=== PATIENT | female | born 1965 | race Caucasian/White ===

== ENCOUNTER → 2018-06-30 | Outpatient (CLI) | payer OTHER ==
[~2018-06-30] MED LIST: BACLOFEN10 MG PO; CELEBREX200 MG PO; CITALOPRAM HBR40 MG PO; CLONAZEPAM0.5 MG PO; DICLOFENAC SODI50 MG PO; GABAPENTIN100 MG PO; LISINOPRIL10 MG PO; MELATONIN PO; MOBIC7.5 MG PO; MULTIVITAMIN; NORCO 10-325 T1 EACH PO; NORCO 10MG-325MG1 EA PO; PLEXUS SLIM PO; REQUIP1 MG PO; TIZANIDINE HCL4 M1 PO; VIMOVO PO; VOLTAREN100 GM; ZOLPIDEM TARTRA10 MG PO; [UNRECOGNIZED DRUG - OTHER] PO
== END ==
LOC: MAMMO 09:23
PROVIDERS: ATTEND Internal Medicine
DX: Z12.31 Encounter for screening mammogram for malignant neoplasm of breast (principal)
CPT/HCPCS: 77067

== ENCOUNTER → 2018-11-07 | Outpatient (CLI) | payer OTHER ==
--- NOTE | 2018-11-07 18:23 | Diagnostic Imaging Report ---
ANKLE 3+ VIEWS LEFT, FOOT LEFT COMPLETE - 3 views HISTORY: Pain in left foot greater than one week, stinging for approximately 1 month COMPARISON: None available. FINDINGS: Bones: No fracture. The alignment is normal. Joints: Mild degenerative changes throughout the foot. Ankle mortise is maintained. The talar dome is intact. Soft tissues: Marked soft tissue swelling about the visualized lower extremity IMPRESSION: No acute radiographic abnormality. Signed by: Joe Lang MD on 11/07/2018 6:19 PM
== END ==
LOC: RAD 16:23
PROVIDERS: ATTEND Internal Medicine
DX: M25.572 Pain in left ankle and joints of left foot (principal)

== ENCOUNTER 2019-01-04 21:02 | Emergency (ER) | payer OTHER ==
[~2019-01-04] VITALS: Ht 160 cm; Wt 117.0 kg
--- OUTSIDE RECORDS SUMMARY | 2019-01-04 21:07 | XMS REPORT ---
Author Author [facility] Address Unknown Phone Unavailable Care Team Providers Care Portrait Studio Photographer Name Role Phone ARTURO ENG Unavailable Unavailable Problems This patient has no known problems. Allergies, Adverse Reactions, Alerts This patient has no known allergies or adverse reactions. Medications This patient has no known medications. Results Test Description Test Time Test Comments Text Results Atomic Results Result Comments FOOT LEFT COMPLETE 2018-11-07 18:16:00 [place] [address] Patient Name: NANCIE TORREZ MR #: [id number] : 1965 Age/Sex: 53/F Req #: [id number] [facility] Physician: Ordered by: ARTURO ENG MD Report #: [id number] Location: [facility] Room/Bed: Procedure: [id number] DX/FOOT LEFT COMPLETE Exam Date: 11/07/18 Exam Time: 1631 REPORT STATUS: Signed ANKLE 3+ VIEWS LEFT, FOOT LEFT COMPLETE - 3 views HIST ORY: Pain in left foot greater than one week, stinging for approximately 1 month COMPARISON: None available. FINDINGS: Bones: No fracture. The alignment is normal. Joints: Mild degenerative changes throughout the foot. Ankle mortise is maintained. The talar dome is intact. Soft tissues: Marked soft tissue swelling about the visualized lower extremity IMPRESSION: No acute radiographic abnormality. Signed by: Joe Lang MD on 11/07/2018 6:19 PM Dictated By: MARGO LANG MD 18 Transcribed By: MILENA on 11/07/181818 COPY TO: ARTURO ENG MD ANKLE 3+ VIEWS LEFT 2018-11-07 18:16:00 [place] [address] Patient Name: NANCIE TORREZ MR #: [id number] : 1965 Age/Sex: 53/F Req #: [id number] Adm Physician: Ordered by: ARTURO ENG MD Report #: [id number] Location: [facility] Room/Bed: Procedure: [id number] DX/ANKLE 3+ VIEWS LEFT Exam Date: 11/07/18 Exam Time: 1631 REPORT STATUS: Signed ANKLE 3+ VIEWS LEFT, FOOT LEFT COMPLETE - 3 views HISTORY: Pain in left foot greater than one week, stinging for approximately 1 month COMPARISON: None available. FINDINGS: Bones: No fracture. The alignment is normal. Joints: Mild degenerative changes throughout the foot. Ankle mortise is maintained. The talar dome is intact. Soft tissues: Marked soft tissue swelling about the visualized lower extremity IMPRESSION: No acute radiographic abnormality. Signed by: Joe Lang MD on 11/07/2018 6:19 PM Dictated By: MARGO LANG MD 18 Transcribed By: MILENA on 11/07/181818 COPY TO: ARTURO ENG MD MAMMOGRAPHY DIGITAL SCR BILAT 2018-06-30 10:20:00 [place] [address] Patient Name: NANCIE TORREZ MR #: [id number] : 1965 Age/Sex: 53/F Req #: [id number] [facility] Physician: Ordered by: ARTURO ENG MD Report #: [id number] Location: MAMMO Room/Bed: Procedure: [id number] MG/MAMMOGRAPHY DIGITAL SCR BILAT Exam Date: 06/30/18 Exam Time: 0947 REPORT STATUS: Signed #[id number] - [id number] #BILATERAL DIGITAL SCREENING MAMMOGRAM WITH CAD: 06/30/2018 CLINICAL: Routine screening. Comparison is made to exams dated: 09/28/2013 mammogram and 09/08/2013 mammogram - [facility]. Current study contains 4 films. There are scattered fibroglandular elements in both breasts. Current study was also evaluated with a Computer Aided Detection (CAD) system. There are benign vascular calcifications and calcifications in both breasts. No significant masses, calcifications, or other findings are seen in either breast. There has been no significant interval change. IMPRESSION: BENIGN There is no mammographic evidence of malignancy. A 1 year screening mammogram is recommended. The patient will be notified by letter of the results. Essie dwyer/jerome:07/05/2018 13:53:55 Health Director: Josleyn FONTANEZ(R)(M), [facility] letter sent: Compared to Prior B9 Mammogram BI-RADS: 2 Benign Dictated By: ESSIE CADET DO [id number] Transcribed By: JEROME on 07/05/18 9050 COPY TO: ARTURO ENG MD
--- OUTSIDE RECORDS SUMMARY | 2019-01-04 21:07 | XMS REPORT | Clinical Summary ---
Author Author [facility] [employer] Address Unknown Phone Unavailable Care Team Providers Care Steel Rule Inspector Name Role Phone Dominique Ng MD PCP Allergies Comments Active Allergy Reactions Severity Noted Date Tramadol 10/05/2018 Medications End Date Status Medication Sig Dispensed Refills Start Date Active amLODIPine (NORVASC) 10 Take 10 mg by 0 mg tablet mouth daily. Active citalopram (CeleXA) 10 MG Take 10 mg by 0 tablet mouth daily. Active zolpidem (AMBIEN) 5 MG Take 5 mg by 0 tablet mouth nightly as needed for sleep. 11/05/2018 citalopram (CeleXA) 20 MG Take 1 tablet 30 tablet 0 tablet (20 mg total) 9 by mouth daily for 30 days. 10/13/2018 clonAZEPAM (KlonoPIN) 0.5 Take 1 tablet 15 tablet 0 MG tablet (0.5 mg 9 total) by mouth 2 (two) times a day as needed for anxiety for up to 15 doses. Active Problems Not on file Encounters Care Team Description Date Type Specialty Codey Florence MD Depression, unspecified depression type (Primary Dx); Anxiety 10/05/2018 Emergency Emergency Medicine - 10/06/2018 after 01/03/2018 Social History Date Tobacco Use Types Packs/Day Years Used Never Smoker Smokeless Tobacco: Never Used Alcohol Use Drinks/Week oz/Week Comments Yes soc Sex Assigned at Date Recorded Not on file Industry Job Start Date Occupation Not on file Not on file Not on file Travel End Travel History Travel Start No recent travel history available. Last Filed Vital Signs Time Taken Vital Sign Reading 10/06/2018 8:16 AM CDT Blood Pressure 148/82 10/06/2018 8:16 AM CDT Pulse 64 10/06/2018 8:16 AM CDT Temperature 36.3 C (97.4 F) 10/06/2018 8:16 AM CDT Respiratory Rate 17 10/06/2018 8:16 AM CDT Oxygen Saturation 97% - Inhaled Oxygen - Concentration 10/05/2018 5:04 PM CDT Weight 109 kg (240 lb) 10/05/2018 5:04 PM CDT Height 160 cm (5' 3") 10/05/2018 5:04 PM CDT Body Mass Index 42.51 Plan of Treatment Not on file Procedures Comments Procedure Name Priority Date/Time Associated Diagnosis ECG ED PRELIMINARY Routine 10/05/2018 INTERPRETATION 6:27 PM CDT ESTIMATED GFR STAT 10/05/2018 5:59 PM CDT URINALYSIS SCREEN AND STAT 10/05/2018 MICROSCOPY, WITH REFLEX 5:59 PM CDT TO CULTURE URINE DRUGS OF ABUSE STAT 10/05/2018 SCREEN 5:59 PM CDT SALICYLATE LEVEL STAT 10/05/2018 5:59 PM CDT ACETAMINOPHEN LEVEL STAT 10/05/2018 5:59 PM CDT ALCOHOL LEVEL, BLOOD STAT 10/05/2018 5:59 PM CDT T4, FREE STAT 10/05/2018 5:59 PM CDT THYROID STIMULATING STAT 10/05/2018 HORMONE 5:59 PM CDT COMPREHENSIVE METABOLIC STAT 10/05/2018 PANEL 5:59 PM CDT HC COMPLETE BLD COUNT STAT 10/05/2018 W/AUTO DIFF 5:59 PM CDT ECG 12-LEAD STAT 10/05/2018 5:19 PM CDT URINE CULTURE STAT 10/05/2018 5:05 PM CDT after 01/03/2018 Results * ECG ED Preliminary Interpretation - Not an Order (10/05/2018 6:27 PM CDT) Narrative Performed At Codey Florence MD 10/06/2018 10:16 PM ECG ED Preliminary Interpretation - Not an Order Performed by: Codey Florence MD Authorized by: Codey Florence MD ECG reviewed by ED Physician in the absence of a director title: yes Interpretation: Interpretation: normal Rate: ECG rate:69 ECG rate assessment: normal Rhythm: Rhythm: sinus rhythm Ectopy: Ectopy: none QRS: QRS axis:Normal QRS intervals:Normal Conduction: Conduction: normal ST segments: ST segments:Normal T waves: T waves: normal * Urinalysis screen and microscopy, with reflex to culture (10/05/2018 5:59 PM CDT) Specimen site Clean catch [facility] Color, UA Yellow [facility] Appearance, UA Clear [facility] Specific 1.014 1.001 - 1.035 [facility] gravity, UA [facility] pH, UA 5.0 5.0 - 8.5 [facility] Protein, UA Negative Negative [facility] Glucose, UA Negative Negative [facility] Ketones, UA Negative Negative [facility] Bilirubin, UA Negative Negative [facility] Blood, UA Negative Negative [facility] Nitrite, UA Negative Negative [facility] Urobilinogen, Negative <2.0 [facility] Leukocyte Negative Negative [facility] esterase, UA [facility] Epithelial Moderate /HPF [facility] cells, [facility] WBC, UA <1 0 - 5 /HPF [facility] RBC, UA 3 0 - 5 /HPF [facility] Bacteria, UA None seen None seen [facility] Yeast, UA None seen [facility] Yeast with None seen [facility] Specimen Urine Performing Organization Address City/State/Zipcode Phone Number [facility] DEPARTMENT OF [address] [place] [address] PATHOLOGY AND GENOMIC MEDICINE [facility] [address] [place], [place] [id number] [place] [address] * Estimated GFR (10/05/2018 5:59 PM CDT) [facility] Estimated GFR >=90 mL/min/1.73 m2 [facility] Comment: [facility] G1 >=90 Normal or high G2 60-89Mildly decreased [id number] Mildly to moderately decreased [id number] Moderately to severely decreased G4 15-29Severely decreased G5 <15Kidney failure The eGFR was calculated using the Chronic Kidney Disease Epidemiology Collaboration (CKD-EPI) equation. Interpretation is based on recommendations of the National Kidney Foundation-Kidney Disease Outcomes Quality Initiative (NKF-KDOQI) published in 2014. Specimen Plasma specimen Performing Organization Address City/[facility] Cent[facility]ode Phone Number [facility] DEPARTMENT [place] [address] [place] [address] PATHOLOGY AND GENOMIC MEDICINE [address] * Urine drugs of abuse screen (10/05/2018 5:59 PM CDT) [facility] Amphetamine Negative [facility] screen, urine [facility] Barbiturate Negative [facility] screen, urine [facility] Benzodiazepine Negative [facility] screen, urine [facility] Cannabinoid Positive (A) [facility] screen, urine [facility] Cocaine screen, Negative [facility] urine [facility] Methadone Negative [facility] metabolite [facility] urine [facility] Opiates screen, Negative [facility] urine [facility] Phencyclidine Negative [facility] screen, urine [facility] Specimen Urine Performing Organization Address City/[facility]/Zipcode Phone Number [address] [place] [address] PATHOLOGY AND GENOMIC MEDICINE [address] * CBC with platelet and differential (10/05/2018 5:59 PM CDT) [facility] WBC 9.6 4.2 - 11.0 k/uL [facility] RBC 4.34 4.04 - 5.86 m/uL [facility] HGB 13.2 11.5 - 15.3 g/dL [facility] HCT 42.5 34.0 - 45.0 % [facility] MCV 97.9 80.0 - 98.0 fL [facility] MCH 30.4 27.0 - 34.0 pg [facility] MCHC 31.1 (L) 31.5 - 36.5 g/dL [facility] RDW - SD 44.4 37.0 - 51.0 fL [facility] MPV 9.4 7.4 - 10.4 fL [facility] Platelet count 351 150 - 400 k/uL [facility] Nucleated RBC 0.00 /100 WBC [facility] Neutrophils 64.8 36.0 - 66.0 % [facility] Lymphocytes 26.6 24.0 - 44.0 % [facility] Monocytes 6.6 (H) 0.0 - 6.0 % [facility] Eosinophils 1.2 0.0 - 6.0 % [facility] Basophils 0.4 0.0 - 1.2 % [facility] Immature 0.4 0.0 - 1.0 % [facility] granulocytes [facility] Specimen Blood Performing Organization Address City/[facility]/[place] [address] PATHOLOGY AND GENOMIC MEDICINE [address] * Thyroid stimulating hormone (10/05/2018 5:59 PM CDT) Pathologist [facility] TSH 3.27 0.27 - 4.20 uIU/mL [facility] Specimen Plasma specimen Performing Organization Address City/[facility] Medical [place] [address] PATHOLOGY AND GENOMIC MEDICINE [address] * T4, free (10/05/2018 5:59 PM CDT) T4, free 1.00 0.90 - 1.70 ng/dL [facility] Specimen Plasma specimen Performing Organization Address City/[facility] Centercode Phone Number [facility] DEPARTMENT OF [address] [place] [address] PATHOLOGY AND GENOMIC MEDICINE [place] [address] [address] * Alcohol level, blood (10/05/2018 5:59 PM CDT) Alcohol None Detected mg/dL [facility] Comment: DARIAN VILLARREAL Normal [facility] None HOSPITAL Detected Legal Intoxication in [place] 80 mg/dL (0.08%) Toxic Concentration 200 mg/dL (0.2%) Potentially Fatal 350-500 mg/dL (0.35%-0.5%) Alcohol percent None Detected % [facility] Specimen Blood Performing Organization Address City/[facility] Centercode Phone Number [facility] DEPARTMENT OF [address] [place] [address] PATHOLOGY AND GENOMIC MEDICINE [place] [address] * Acetaminophen level (10/05/2018 5:59 PM CDT) Acetaminophen <15.3 10.0 - 30.0 ug/mL [facility] level Comment: DARIAN VILLARREAL Therapeutic [facility] 10-30 HOSPITAL ug/mL Possible Toxicity 150-200 ug/mL Probable Toxicity >200 ug/mL Specimen Blood Performing Organization Address City/[facility] Centerconj Phone Number [facility] DEPARTMENT OF [address] [place] [address] PATHOLOGY AND GENOMIC MEDICINE [place] [address] * Salicylate level (10/05/2018 5:59 PM CDT) Salicylate <0.4 (L) 3.0 - 30.0 mg/dL [facility] Comment: DARIAN VILLARREAL Therapeutic Range: [facility] 5 - 30 mg/dL HOSPITAL Specimen Blood Performing Organization Address City/[facility]/Zipcode Phone Number [facility] DEPARTMENT OF [address] [place] [address] PATHOLOGY AND GENOMIC MEDICINE [place] [address] [facility] Hospitaljuliana [place]. [address] * Comprehensive metabolic panel (10/05/2018 5:59 PM CDT) Sodium 143 135 - 150 mEq/L [facility] Potassium 3.7 3.5 - 5.0 mEq/L [facility] Chloride 104 98 - 112 mEq/L [facility] CO2 27 24 - 31 mmol/L [facility] Anion gap 12@ANIO 7 - 15 mEq/L [facility] BUN 9 7 - 18 mg/dL [facility] Creatinine 0.60 0.50 - 0.90 mg/dL [facility] Glucose 89 65 - 100 mg/dL [facility] Calcium 9.7 8.3 - 10.2 mg/dL [facility] Protein 7.9 6.3 - 8.3 g/dL [facility] Albumin 3.9 3.5 - 5.0 g/dL [facility] A/G ratio 1.0 0.7 - 3.8 [facility] Alkaline 121 (H) 0 - 104 U/L [facility] phosphatase [facility] AST 29 10 - 35 U/L [facility] ALT 25 5 - 50 U/L [facility] Total bilirubin <0.3 0.2 - 1.2 mg/dL [facility] Specimen Plasma specimen Performing Organization Address City/State/Zipcode Phone Number [facility] DEPARTMENT OF [facility] [place] [address] PATHOLOGY AND GENOMIC MEDICINE [place] [address] [address] * ECG 12 lead (10/05/2018 5:19 PM CDT) Ventricular 69 [facility] rate Atrial rate 69 [facility] RI interval 122 [facility] QRSD interval 82 [facility] QT interval 398 [facility] QTC interval 426 [facility] P axis 1 56 [facility] QRS axis 1 24 [facility] T wave axis 91 [facility] EKG impression Normal sinus rhythm-Abnormal [facility] MUSE QRS-T angle, consider primary T wave abnormality-Abnormal ECG-No previous ECGs available- Specimen Narrative Performed At Performing Organization Address City/State/Zipcode Phone Number [facility] [address] [place] [address] * Urine culture (10/05/2018 5:05 PM CDT) Urine culture SEE COMMENTComment: [facility] Bacteriuria screen negative. [facility] Specimen Performing Organization Address City/State/Zipcode Phone Number [facility] DEPARTMENT OF [address] [place] [address] PATHOLOGY AND GENOMIC MEDICINE [facility] [address] after 01/03/2018 Insurance Type Payer Benefit Subscriber ID Effective Phone Address Plan / Dates Group Exchange [employer] EXCHANGE SAMUELS xxxxxxxxxx [id number] [employer] resent E EXCHANGE Advance Directives Patient has advance care planning documents on file. For more information, pleelbert e contact: Jeff Schaefer [address] [place] [address]
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
[2019-01-05 00:14] LABS: BILIRUBIN,URINE NEGATIVE (NEGATIVE); CLARITY,URINE CLEAR (CLEAR); COLOR,URINE YELLOW (YELLOW); KETONES,URINE NEGATIVE (NEGATIVE); LEUKOCYTE ESTERASE ,URINE NEGATIVE (NEGATIVE); NITRITE,URINE NEGATIVE (NEGATIVE); PROTEIN,URINE DIPSTICK NEGATIVE (NEGATIVE); URINE UROBILINOGEN 0.2 mg/dL (0.2 - 1)
[2019-01-05 00:16] LABS: PREGNANCY TEST, URINE NEGATIVE (NEGATIVE)
[2019-01-05 00:52] LABS: BACTERIA,URINE FEW /HPF; EPITHELIAL CELLS,URINE FEW /LPF; RBC,URINE 0-5 /HPF (0-5); WBC,URINE (MAN) 0-5 /HPF (0-5)
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
== END 2019-01-05 01:19 | disposition home or self-care (01) ==
LOC: ER 21:02
DX: S16.1XXA Strain of muscle, fascia and tendon at neck level, initial encounter (principal); S13.4XXA Sprain of ligaments of cervical spine, initial encounter; S33.5XXA Sprain of ligaments of lumbar spine, initial encounter; V43.02XA Car driver injured in collision with other type car in nontraffic accident, initial encounter; I10 Essential (primary) hypertension; F41.9 Anxiety disorder, unspecified; M19.90 Unspecified osteoarthritis, unspecified site; M06.9 Rheumatoid arthritis, unspecified
CPT/HCPCS: 71045; 72125; 81001; 81025; 99283

== ENCOUNTER → 2019-08-04 | Outpatient (CLI) | payer OTHER | LOC: MAMMO 12:30 | PROVIDERS: ATTEND Internal Medicine | DX: Z12.31 Encounter for screening mammogram for malignant neoplasm of breast (principal) | CPT/HCPCS: 77067 ==

== ENCOUNTER → 2019-08-24 | Day surgery (SDC) | payer OTHER ==
[2019-08-22 15:50] LABS: BASOPHILS % 0.3 % (0.0-1.0); EOSINOPHILS # (AUTO) 0.1 (0.0-0.4); EOSINOPHILS % 1.4 % (0.0-6.0); HEMATOCRIT 41.6 % (34.2-44.1); HEMOGLOBIN 13.1 g/dL (12.0-16.0); LYMPHOCYTES # (AUTO) 2.1 (1.0-3.2); MEAN CORPUSCULAR HEMOGLOBIN 30.6 pg (28-32); MEAN CORPUSCULAR HGB CONC 31.5 g/dL (31-35); MEAN CORPUSCULAR VOLUME 97.2 fL (81-99); MONOCYTES # (AUTO) 0.7 (0.2-0.8); MONOCYTES % 7.4 % (4.4-11.3); NEUTROPHILS # (AUTO) 5.8 (2.1-6.9); NEUTROPHILS % 66.7 % (38.7-80.0); PLATELET COUNT 310 x10e3/uL (140-360); RED BLOOD COUNT 4.28 x10e6/uL (3.6-5.1); RED CELL DISTRIBUTION WIDTH 12.2 % (11.7-14.4)
[2019-08-22 16:12] LABS: ALANINE AMINOTRANSFERASE 18 IU/L (0-55); ALBUMIN 3.9 g/dL (3.5-5.0); ALBUMIN/GLOBULIN RATIO 1.2 (0.8-2.0); ALKALINE PHOSPHATASE 106 IU/L (40-150); BLOOD UREA NITROGEN 13 mg/dL (7-26); BUN/CREATININE RATIO 19 (6-25); CALCIUM 9.4 mg/dL (8.4-10.2); CARBON DIOXIDE 29 mmol/L (22-29); CHLORIDE 104 mmol/L (98-107); EST GLOMERULAR FILTRATION RATE > 60 ML/MIN (60-); GLUCOSE 104 mg/dL (74-118); SODIUM 138 mmol/L (136-145)
[~2019-08-24] VITALS: Ht 160 cm; Wt 112.9 kg
[~2019-08-24] MED LIST changes: +ALPRAZOLAM 0.5 MG TAB ONE; +DIPHENHYDRAMINE HCL 25 MG CAP ONE; +FENTANYL CITRATE/PF 100MCG/2 ML INJ ONE; +HEPARIN SOD/SOD CHLORIDE 2,000 ML ONE; +IOPAMIDOL 370 MG/ML 200 ML INFUS..BTL INJ ONE; +LIDOCAINE HCL 2% LOCAL 20 ML VIAL ONE; +MIDAZOLAM HCL 2 MG/2 ML VIAL ONE; +SODIUM CHLORIDE 0.9% 1000ML 1,000 ML ONE; +TRAZODONE HCL50 MG PO; +VERAPAMIL HCL 2.5 MG/ML 2 ML VIAL ONE
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
[2019-08-24 14:35] VITALS: BP 136/87
--- NOTE | 2019-08-24 14:35 | NUR ---
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 Bedside report received from MADELINE Flores. Identifierx2. Alert oriented and appropriate, PERRLA, respirations even and unlabored to room air. Pulses x4 extremities equal and strong. Pedal pulses PT/DP X4 and marked. Cap fill brisk < 3 sec. Rt TR band no fix Tr band down at 1530pm Skin warm and dry integrity appears D/I IV 20g to rt TR band , presents healthy w/o s/s of infiltration or complaint. Abdomen soft and supple. pt offered toileting, denies need to urinate or defecate. No personal affects with patient. Family at bedside. Pt and family verbalizes understanding of POC. Currently w/o complaint of pain or need. ds/rn
[2019-08-24 14:45] VITALS: BP 157/90
[2019-08-24 15:00] VITALS: BP 133/62
[2019-08-24 15:30] VITALS: BP 155/77
--- NOTE | 2019-08-24 15:30 | NUR ---
1530p RADIAL COMPRESSION REMOVAL NOTE: Initial Cuff volume 13cc 1530p -3cc Removed No hematoma/bleeding noted with normal neurovascular function. 1545p -5cc Removed No hematoma/ bleeding noted with normal neurovascular function. 1600p -5cc Removed No hematoma/bleeding noted with normal neurovascular function. Air removal completed. Stasis achieved sterile 2x2,Tegaderm, Coban dressing No hematoma, bleeding noted with normal neurovascular function. Wrist splint in place. Pt instructed on POC. Ds/Rn
[2019-08-24 16:00] VITALS: BP 158/77
[2019-08-24 16:15] VITALS: BP 110/77
--- NOTE | 2019-08-24 16:15 | NUR ---
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 Rt assessed for s/s of complication and presence of hematoma. Skin warm, dry, no discolor, and pulses present. IV removed left hand. Distal tip appears intact. VS WNL. Pt denies pain, sob, or need at this time. Family at bedside. Review of discharge paperwork and follow up instructions. verbalized understanding. Pt to wheelchair and transported to front of hospital. Transferred to private vehicle under own strength w/o incident with DC paperwork in hand. - sheyla/shravan
--- NOTE | 2019-08-24 19:06 | Operative Report ---
DATE OF PROCEDURE: SURGEON: Lane Jaquez DO PROCEDURES PERFORMED: 1. Selective coronary angiography x2. 2. Left heart catheterization. PREPROCEDURE DIAGNOSIS: Abnormal stress test showing apical ischemia. POSTPROCEDURE DIAGNOSIS: No significant coronary artery disease. ESTIMATED BLOOD LOSS: Less than 10 mL. SPECIMENS REMOVED: None. PROCEDURE IN DETAIL: After informed consent was obtained, the patient was brought to the cardiac catheterization laboratory in a fasting and nonsedated state. Bilateral groins and right wrist were prepped and draped in the usual sterile fashion. A 2% lidocaine was infiltrated over the right wrist for local anesthesia. Using micropuncture needle, the right radial artery was accessed via the modified Seldinger technique and a 6-[place]namese slender sheath was placed. Next, diagnostic coronary angiograph and left heart catheterization was performed using a TIG-4 catheter. The patient did not require any interventions. The patient tolerated the procedure well with no immediate complications and was transferred to room in stable condition. Hemostasis was achieved via TR band. PROCEDURAL FINDINGS: 1. Left main coronary artery is patent without significant disease. 2. Left anterior descending coronary artery is patent with luminal irregularities. 3. Left circumflex coronary provides one large obtuse marginal vessel with no significant coronary artery disease. 4. The right coronary artery is a large dominant vessel and provides posterior descending coronary artery with luminal irregularities. 5. Left ventricular end-diastolic pressure was 20-22 mmHg with no aortic valve gradient present upon pullback. IMPRESSION: No significant coronary artery disease. RECOMMENDATIONS: Continue medical management. Lane Jaquez DO BM/MODL /[id number]
== END | disposition home or self-care (01) ==
LOC: CATH LAB 11:35
PROVIDERS: ATTEND Internal Medicine Interventional Cardiology
DX: I25.10 Atherosclerotic heart disease of native coronary artery without angina pectoris (principal); R94.39 Abnormal result of other cardiovascular function study; I10 Essential (primary) hypertension; J45.909 Unspecified asthma, uncomplicated; Z01.812 Encounter for preprocedural laboratory examination; Z68.41 Body mass index [BMI] 40.0-44.9, adult; Z82.49 Family history of ischemic heart disease and other diseases of the circulatory system; Z82.3 Family history of stroke
CPT/HCPCS: 36415; 80053; 81025; 85025; 93458; C1887; J2001; J2250; J3010; J7030; Q9967; 99152

== ENCOUNTER → 2021-12-17 | Day surgery (SDC) | payer OTHER ==
[2021-12-15 10:30] LABS: BASOPHILS % 0.4 % (0.0-1.0); EOSINOPHILS # (AUTO) 0.1 (0.0-0.4); EOSINOPHILS % 1.3 % (0.0-6.0); HEMOGLOBIN 11.8 g/dL (12.0-16.0); LYMPHOCYTES # (AUTO) 1.6 (1.0-3.2); LYMPHOCYTES % 21.8 % (18.0-39.1); MEAN CORPUSCULAR HGB CONC 31.1 g/dL (31-35); MEAN CORPUSCULAR VOLUME 96.7 fL (81-99); MONOCYTES # (AUTO) 0.5 (0.2-0.8); MONOCYTES % 7.4 % (4.4-11.3); NEUTROPHILS # (AUTO) 4.9 (2.1-6.9); PLATELET COUNT 257 x10e3/uL (140-360); RED BLOOD COUNT 3.93 x10e6/uL (3.6-5.1); RED CELL DISTRIBUTION WIDTH 12.1 % (11.7-14.4)
[~2021-12-17] MED LIST changes: -ALPRAZOLAM 0.5 MG TAB ONE; +CRESTOR10 MG PO; -DIPHENHYDRAMINE HCL 25 MG CAP ONE; -HEPARIN SOD/SOD CHLORIDE 2,000 ML ONE; -IOPAMIDOL 370 MG/ML 200 ML INFUS..BTL INJ ONE; -LIDOCAINE HCL 2% LOCAL 20 ML VIAL ONE; +LIDOCAINE HCL 2% LOCAL INJ 5 ML SDV VIAL INJ ONE; +PLAQUENIL200 MG PO; +PROPOFOL IV EMULSION 10 MG/ML 20 ML VIAL ONE; -SODIUM CHLORIDE 0.9% 1000ML 1,000 ML ONE; -VERAPAMIL HCL 2.5 MG/ML 2 ML VIAL ONE
[2021-12-17 12:25] VITALS: BP 133/74
== END | disposition home or self-care (01) ==
LOC: OR 09:21
PROVIDERS: ATTEND Internal Medicine Gastroenterology
DX: R19.7 Diarrhea, unspecified (principal); D12.2 Benign neoplasm of ascending colon; D12.3 Benign neoplasm of transverse colon; K29.00 Acute gastritis without bleeding; K58.9 Irritable bowel syndrome, unspecified; K44.9 Diaphragmatic hernia without obstruction or gangrene; K21.9 Gastro-esophageal reflux disease without esophagitis; K57.30 Diverticulosis of large intestine without perforation or abscess without bleeding; K64.0 First degree hemorrhoids; Z71.3 Dietary counseling and surveillance; G47.33 Obstructive sleep apnea (adult) (pediatric); J44.9 Chronic obstructive pulmonary disease, unspecified; I10 Essential (primary) hypertension; E66.01 Morbid (severe) obesity due to excess calories; E78.5 Hyperlipidemia, unspecified; I83.90 Asymptomatic varicose veins of unspecified lower extremity; M06.9 Rheumatoid arthritis, unspecified; M19.90 Unspecified osteoarthritis, unspecified site; F41.9 Anxiety disorder, unspecified; F32.A Depression, unspecified; Z88.6 Allergy status to analgesic agent; Z91.048 Other nonmedicinal substance allergy status; Z01.810 Encounter for preprocedural cardiovascular examination; Z01.812 Encounter for preprocedural laboratory examination; Z20.822 Contact with and (suspected) exposure to COVID-19; Z79.899 Other long term (current) drug therapy; Z68.41 Body mass index [BMI] 40.0-44.9, adult
CPT/HCPCS: 0223U; 36415; 43239; 45378; 45380; 85025; 93005; J2001; J2250; J3010

== ENCOUNTER → 2023-12-30 | Outpatient (REF) | payer OTHER ==
[~2023-12-30] MED LIST changes: -FENTANYL CITRATE/PF 100MCG/2 ML INJ ONE; -LIDOCAINE HCL 2% LOCAL INJ 5 ML SDV VIAL INJ ONE; -MIDAZOLAM HCL 2 MG/2 ML VIAL ONE; -PROPOFOL IV EMULSION 10 MG/ML 20 ML VIAL ONE
== END ==
LOC: MAMMO 09:41
PROVIDERS: ATTEND Internal Medicine
DX: N63.31 Unspecified lump in axillary tail of the right breast (principal)
CPT/HCPCS: 77066